=== PATIENT | female | born 1950 | race Caucasian/White ===

== ENCOUNTER 2021-03-30 14:58 | Emergency (ER) | payer MEDICARE ==
[2021-03-30 15:58] LABS: HEMOGLOBIN 14.2 gm/dl (12.3-15.3); RED BLOOD COUNT 4.24 M/UL (4.00-5.10); WHITE BLOOD COUNT 11.2 K/UL (4.5-11.0)
[2021-03-30 16:21] LABS: BUN/CREATININE RATIO 15 (0-10)
[2021-03-30] MEDS ORDERED: PYRIDIUM100 MG PO (18:06)
[2021-03-30] MEDS ORDERED: BACTRIM DS TAB1 EACH PO (18:06)
== END 2021-03-30 18:37 | disposition home or self-care (01) ==
LOC: ER1 14:58
PROVIDERS: Physician Assistant
DX: N30.91 Cystitis, unspecified with hematuria (principal); Z90.49 Acquired absence of other specified parts of digestive tract; Z90.89 Acquired absence of other organs; F17.200 Nicotine dependence, unspecified, uncomplicated; Z79.899 Other long term (current) drug therapy
CPT/HCPCS: 80053; 81001; 85025; 87086; 96374; 96375; 99284; J0696; J1885